=== PATIENT | male | born 1990 | race Caucasian/White ===

== ENCOUNTER 2016-09-14 09:30 | Emergency (ER) | payer OTHER ==
[2016-09-14 09:51] VITALS: BP 106/65; PULSE 90; TEMP 98.1; BMI 23.6
--- NOTE | 2016-09-14 10:17 | PDOC ---
History of Present Illness - General Chief Complaint: Sore Throat Stated Complaint: THROAT PAIN Time Seen by Provider: 09/14/16 10:06 History Source: Patient Exam Limitations: No Limitations - History of Present Illness Initial Comments: 09/14/16 10:17 26-year-old male with no past medical history presents to the ED with complaints of intermittent wheezing, dry hacking cough, with generalized arthralgia. Patient denies recent travel, recent illness, fever, chills, chest pain, abdominal pain, change in appetite or change in activity. Timing/Duration: reports: other (6 days) Severity: reports: moderate Possible Cause: Yes: no prior episodes Modifying Factors: improves with: coughing Associated Symptoms: reports: cough, sore throat, wheezing Past History - Past Medical History Allergies/Adverse Reactions: Allergies Allergy/AdvReac Type Severity Reaction Status Date / Time No Known Allergies Allergy Verified 09/14/16 09:45 Home Medications: Ambulatory Orders Cephalexin Monohydrate [Keflex -] 500 mg PO BID #10 capsule 06/04/13 No Home Medications 0 dose .ROUTE UTDICT 06/04/13 Tramadol HCl [Ultram -] 50 mg PO Q8H PRN #20 tablet 06/04/13 Albuterol Sulfate Inhaler - [Ventolin HFA Inhaler -] 1 - 2 inh PO QID PRN #1 inhaler 09/14/16 Azithromycin [Zithromax Tri-Stanley (3 DAYS) -] 500 mg PO DAILY #3 tablet 09/14/16 Guaifenesin AC [Robitussin AC] 10 ml PO Q8H PRN #100 ml MDD 30 09/14/16 Other medical history: none - Psycho/Social/Smoking Cessation Hx Anxiety: No Suicidal Ideation: No Smoking History: Current some day smoker Have you smoked in the past 12 months: Yes Number of Cigarettes Smoked Daily: 15 Information on smoking cessation initiated: Yes 'Breaking Loose' booklet given: 09/14/16 Hx Alcohol Use: No Drug/Substance Use Hx: No Substance Use Type: None Patient Lives Alone: No Lives with/in: spouse/SO Review of Systems - Review of Systems Able to Perform ROS?: Yes Constitutional: No: Symptoms Reported HEENTM: Yes: Throat Pain Respiratory: Yes: Cough, Wheezing. No: Shortness of Breath, Productive cough Cardiac (ROS): No: Symptoms Reported ABD/GI: No: Symptoms Reported : No: Symptoms Reported Musculoskeletal: Yes: Joint Pain Integumentary: No: Symptoms Reported Neurological: No: Symptoms reported *Physical Exam - Vital Signs Last Vital Signs Temp Pulse Resp BP Pulse Ox 98.1 F 90 18 106/65 100 09/14/16 09:47 09/14/16 09:47 09/14/16 09:47 09/14/16 09:47 09/14/16 09:47 - Physical Exam General Appearance: Yes: Nourished, Appropriately Dressed. No: Apparent Distress HEENT: positive: EOMI, SHAD, TMs Normal, Pharynx Normal. negative: Pale Conjunctivae Neck: positive: Supple Respiratory/Chest: positive: Wheezing (mild expiratorybilateral), Other ( frequent dry hacking coughing during exam). negative: Respiratory Distress, Accessory Muscle Use Cardiovascular: positive: Regular Rhythm, Regular Rate. negative: Murmur Gastrointestinal/Abdominal: positive: Soft. negative: Tenderness Integumentary: positive: Normal Color, Warm, Moist Neurologic: positive: Normal Mood/Affect, Motor Strength 5/5 (ambulatory) Medical Decision Making - Medical Decision Making 09/14/16 10:21 Patient with URI symptoms. Clinically presenting as acute wheezy bronchitis. Patient will be discharged home with azithromycin, Robitussin-AC, and albuterol inhaler *DC/Admit/Observation/Transfer Diagnosis at time of Disposition: Acute wheezy bronchitis - Discharge Dispostion Disposition: HOME Condition at time of disposition: Good - Prescriptions Prescriptions: Guaifenesin AC [Robitussin AC] 10 ml PO Q8H PRN #100 ml MDD 30 PRN Reason: Cough Albuterol Sulfate Inhaler - [Ventolin HFA Inhaler -] 1 - 2 inh PO QID PRN #1 inhaler PRN Reason: Wheezing Azithromycin [Zithromax Tri-Stanley (3 DAYS) -] 500 mg PO DAILY #3 tablet - Referrals Referrals: Josie Andrea MD [Primary Care Provider] - - Patient Instructions Printed Discharge Instructions: DI for Acute Bronchitis Additional Instructions: Please take medication as prescribed. Please use your inhaler for Wheezing or you feel shortness of breath/tightness of the chest. Drink plenty of fluids. May take Motrin or Tylenol for discomfort.
== END 2016-09-14 10:23 | disposition home or self-care (01) ==
LOC: JERFT 09:30
DX: J20.9 Acute bronchitis, unspecified (principal)
CPT/HCPCS: 99281-25

== ENCOUNTER 2018-03-11 03:41 | Emergency (ER) | payer SELFPAY ==
--- NOTE | 2018-03-11 04:12 | PDOC ---
History of Present Illness - General Chief Complaint: Nausea/Vomiting Stated Complaint: VOMITING/DIARRHEA Time Seen by Provider: 03/11/18 04:10 - History of Present Illness Initial Comments: 03/11/18 05:27 28-year-old male complaining of nausea and vomiting with diarrhea since 1 AM after eating tuna fish from grocery store. Patient reports an epigastric discomfort denies lower abdominal pain, urinary symptoms, testicular. Pain. Denies past medical history denies EtOH abuse/use or drug use. Past History - Past Medical History Allergies/Adverse Reactions: Allergies Allergy/AdvReac Type Severity Reaction Status Date / Time No Known Allergies Allergy Verified 03/11/18 04:51 Home Medications: Ambulatory Orders No Home Medications 0 dose .ROUTE UTDICT 06/04/13 - Suicide/Smoking/Psychosocial Hx Smoking History: Former smoker Have you smoked in the past 12 months: Yes Number of Cigarettes Smoked Daily: 8 If you are a former smoker, when did you quit?: 2016 'Breaking Loose' booklet given: 12/29/16 Hx Alcohol Use: No Drug/Substance Use Hx: No Substance Use Type: None *Physical Exam - Physical Exam General Appearance: Yes: Appropriately Dressed Respiratory/Chest: positive: Lungs Clear, Normal Breath Sounds Gastrointestinal/Abdominal: positive: Normal Bowel Sounds, Soft. negative: Tender Extremity: positive: Normal Capillary Refill Integumentary: positive: Normal Color, Dry, Warm ED Treatment Course - LABORATORY CBC & Chemistry Diagram: 03/11/18 01:50 03/11/18 04:39 Medical Decision Making - Medical Decision Making 03/11/18 06:34 A: gastroenteritis P: IVF, zofran, famotidine labs patient denies any abdominal pain now. no NVD currently PO challenging. *DC/Admit/Observation/Transfer Diagnosis at time of Disposition: Gastroenteritis - Discharge Dispostion Condition at time of disposition: Fair - Referrals - Patient Instructions Printed Discharge Instructions: DI for Vomiting -- Adult Additional Instructions: drinking plenty of fluids follow up with your doctor as soon as possible. start a BRAT diet (bananas, rice apples toast ) diet Additional Instructions: * Please call your personal physician to report your Emergency Department visit and to report your progress, if any. * If there is no improvement in symptoms in 2 days call your physician. * Return to the Emergency Department for any worsening symptoms. - Post Discharge Activity Forms/Work/School Notes: Back to Work
[2018-03-11] MEDS ORDERED: SODIUM CHLORIDE 1,000 ML IV STA (04:39)
[2018-03-11] MEDS ORDERED: FAMOTIDINE 20 MG/50 ML IVPB 20 MG/50 ML MG IVPB ONE ×2 (04:39→04:56)
[2018-03-11] MEDS ORDERED: ONDANSETRON 4 MG/2 ML VIAL IVPUSH ONE (04:39)
[2018-03-11 04:51] VITALS: BP 121/75; PULSE 74; TEMP 98.1; BMI 22.8
[2018-03-11] MEDS ORDERED: ONDANSETRON 4 MG/2 ML VIAL ONE (04:56)
[2018-03-11 05:28] LABS: BASO % 0.1 % (0-2.0); EOS % 0.2 % (0-4.5); HEMATOCRIT 46.6 % (35.4-49); LYMPH % 3.9 % (8-40); MCH 25.8 pg (25.7-33.7); MCHC 32.2 g/dl (32.0-35.9); MEAN CELL VOLUME 80.1 fl (80-96); MEAN PLT VOLUME 7.7 fl (7.5-11.1); MONO % 4.6 % (3.8-10.2); NEUT % 91.2 % (42.8-82.8); PLATELET COUNT 270 K/MM3 (134-434); RBC 5.82 M/mm3 (4.00-5.60); RDW 15.3 % (11.9-15.9); WHITE BLOOD COUNT 13.5 K/mm3 (4.0-10.0)
[2018-03-11 05:39] LABS: ALBUMIN 4.8 g/dl (3.4-5.0); ALK PHOS 59 U/L (45-117); ANION GAP 8 MMOL/L (8-16); BILIRUBIN,TOTAL 0.6 mg/dL (0.2-1); BLOOD UREA NITROGEN 24 mg/dL (7-18); CHLORIDE 106 mmol/L (98-107); CO2 25 mmol/L (21-32); CREATININE 0.9 mg/dL (0.55-1.3); GLUCOSE,RANDOM 144 mg/dL (74-106); LIPASE 91 U/L (73-393); POTASSIUM 4.3 mmol/L (3.5-5.1); SGOT/AST 26 U/L (15-37); SGPT/ALT 32 U/L (13-61); SODIUM 139 mmol/L (136-145); TOT PROT 8.6 g/dl (6.4-8.2)
[2018-03-11 06:10] LABS: PLATELET ESTIMATE NORMAL
== END 2018-03-11 07:03 | disposition home or self-care (01) ==
LOC: JER 03:41
PROC: 3E033GC Introduction of Other Therapeutic Substance into Peripheral Vein, Percutaneous Approach (ICD-10-PCS; principal; 2018-03-11)
PROC: 3E033GC Introduction of Other Therapeutic Substance into Peripheral Vein, Percutaneous Approach (ICD-10-PCS; 2018-03-11)
DX: K52.9 Noninfective gastroenteritis and colitis, unspecified (principal)
CPT/HCPCS: 36415; 80053; 83690; 85025; 99282-25; J7030

== ENCOUNTER 2020-08-17 09:30 | Emergency (ER) | payer SELFPAY ==
[2020-08-17 09:48] VITALS: BP 112/71; PULSE 62; TEMP 97.9; BMI 22.8
== END 2020-08-17 10:45 | disposition home or self-care (01) ==
LOC: JERFT 09:30 → JER 09:30
DX: D17.22 Benign lipomatous neoplasm of skin and subcutaneous tissue of left arm (principal)
CPT/HCPCS: 99281-25

== ENCOUNTER 2020-12-07 12:50 | Day surgery (SDC) | payer OTHER ==
[2020-12-02 12:55] VITALS: BMI 22.1
[2020-12-07] MEDS ORDERED: PROPOFOL 20 ML ONE ×2 (13:57→15:16)
[2020-12-07] MEDS ORDERED: KETOROLAC TROMETHAMINE 30 MG/1 ML VIAL ONE (13:57)
[2020-12-07] MEDS ORDERED: MIDAZOLAM HCL 2 MG/2 ML SINGLE DOSE VIAL ONE (13:57)
[2020-12-07] MEDS ORDERED: ceFAZolin SODIUM 1 GM VIAL ONE (14:00)
[2020-12-07] MEDS ORDERED: LIDOCAINE HCL 2% (20ML MULTI-DOSE VIAL) ONE ×2 (14:12→14:22)
[2020-12-07] MEDS ORDERED: ONDANSETRON 4 MG/2 ML VIAL IVPUSH PRN (16:05)
[2020-12-07] MEDS ORDERED: oxyCODONE HCL 5 MG TABLET PO PRN (16:05)
[2020-12-07 16:16] VITALS: TEMP 97.8
[2020-12-07 17:54] VITALS: BP 121/67; PULSE 71
== END 2020-12-07 17:15 | disposition home or self-care (01) ==
LOC: FASU 12:50
PROVIDERS: ATTEND Orthopaedic Surgery Hand Surgery
PROC: 0JBF0ZZ Excision of Left Upper Arm Subcutaneous Tissue and Fascia, Open Approach (ICD-10-PCS; principal; 2020-12-07 15:00)
DX: L72.0 Epidermal cyst (principal)
CPT/HCPCS: 88305-TC; 94760

== ENCOUNTER 2021-06-08 13:59 | Emergency (ER) | payer OTHER ==
[2021-06-08 14:25] VITALS: BP 124/70; PULSE 70; TEMP 98; BMI 22.1
[2021-06-08] MEDS ORDERED: METOCLOPRAMIDE HCL INJECTION 10 MG/2 ML VIAL IVPUSH ONE (14:29)
[2021-06-08] MEDS ORDERED: FAMOTIDINE 20 MG/50 ML IVPB 20 MG/50 ML MG IVPB ONE ×2 (14:29→14:36)
[2021-06-08] MEDS ORDERED: SODIUM CHLORIDE 0.9% 500 ML INFUS.BAG IV ONE (14:29)
[2021-06-08] MEDS ORDERED: METOCLOPRAMIDE HCL INJECTION 10 MG/2 ML VIAL ONE (14:36)
[2021-06-08 15:32] LABS: HEMATOCRIT 39.2 % (35.4-49); HEMOGLOBIN 13.5 GM/dL (11.7-16.9); MCH 27.5 pg (25.7-33.7); MCHC 34.4 g/dl (32.0-35.9); MEAN PLT VOLUME 7.7 fl (7.5-11.1); PLATELET COUNT 254 10^3/uL (134-434); RDW 14.9 % (11.9-15.9); WHITE BLOOD COUNT 8.2 K/mm3 (4.0-10.0)
[2021-06-08 16:00] LABS: ANISOCYTOSIS 0; MACROCYTOSIS 0
[2021-06-08 16:07] LABS: CALCIUM 10.1 mg/dL (8.5-10.1)
[2021-06-08 16:09] LABS: BLOOD UREA NITROGEN 17.4 mg/dL (7-18)
[2021-06-08 16:13] LABS: BILIRUBIN,TOTAL 0.7 mg/dL (0.2-1); TOT PROT 8.4 g/dl (6.4-8.2)
== END 2021-06-08 16:36 | disposition home or self-care (01) ==
LOC: JER 13:59
PROC: 3E033GC Introduction of Other Therapeutic Substance into Peripheral Vein, Percutaneous Approach (ICD-10-PCS; principal; 2021-06-08)
PROC: 3E033GC Introduction of Other Therapeutic Substance into Peripheral Vein, Percutaneous Approach (ICD-10-PCS; 2021-06-08)
DX: R11.10 Vomiting, unspecified (principal); R19.7 Diarrhea, unspecified
CPT/HCPCS: 36415; 80053; 83690; 85025; 99284-25